=== PATIENT | male | born 1985 | race Caucasian/White ===

== ENCOUNTER 2019-12-19 10:36 | Emergency (ER) | payer OTHER, SELFPAY ==
[~2019-12-19] VITALS: Ht 180.3 cm; Wt 99.8 kg
[2019-12-19 10:41] VITALS: Ht 180.3 cm; Wt 99.8 kg
[2019-12-19 12:48] VITALS: BP 142/88
== END 2019-12-19 12:48 | disposition home or self-care (01) ==
LOC: ED 10:36
DX: R05 Cough (principal); J45.909 Unspecified asthma, uncomplicated; Z20.828 Contact with and (suspected) exposure to other viral communicable diseases
CPT/HCPCS: U0003-CS

== ENCOUNTER 2019-12-26 08:45 | Emergency (ER) | payer OTHER, SELFPAY ==
[~2019-12-26] VITALS: Ht 180.3 cm; Wt 111.6 kg
[2019-12-26 09:00] VITALS: Ht 180.3 cm; Wt 111.6 kg
[2019-12-26 11:15] LABS: microscopic required? NO
[2019-12-26 11:15] LABS: CALCIUM 9.1 mg/dL (8.5-10.1); CARBON DIOXIDE 26.5 mmol/L (21-32); CHLORIDE SERUM 101 mmol/L (98-107); GFR1 > 60 mL/min; GLUCOSE SERUM 98 mg/dL (74-106); POTASSIUM SERUM 4.3 mmol/L (3.5-5.1); SODIUM SERUM 138 mmol/L (136-145)
[2019-12-26 11:19] LABS: ALBUMIN 4.2 g/dL (3.4-5.0); ALKALINE PHOSPHATASE 77 U/L (46-116); ALT/SGPT 184 U/L (16-63); AST/SGOT 72 U/L (15-37); BILIRUBIN TOTAL 0.96 mg/dL (0.20-1.00); C REACTIVE PROTEIN 1.8 mg/dL (<=0.9); LACTIC DEHYDROGENASE (LDH) 196 U/L (100-190); TOTAL PROTEIN, SERUM 7.8 g/dL (6.4-8.2)
[2019-12-26 11:22] LABS: BASOPHIL % 0.3 % (0-2); PLATELET COUNT 201 x10^3mcL (130-400); RED CELL DISTRIBUTION WIDTH 12.4 % (11.5-14.5)
[2019-12-26 11:39] LABS: urine erythrocyte NEGATIVE (NEGATIVE)
[2019-12-26 12:25] VITALS: BP 125/84
== END 2019-12-26 12:25 | disposition home or self-care (01) ==
LOC: ED 08:45
PROVIDERS: Specialist
DX: J40 Bronchitis, not specified as acute or chronic (principal); Z20.828 Contact with and (suspected) exposure to other viral communicable diseases
CPT/HCPCS: 36600; 83880; 87804